=== PATIENT | female | born 1990 | race American Indian/Alaskan Native ===

== ENCOUNTER 2016-11-09 13:08 | Emergency (ER) | payer MEDICAID ==
--- NOTE | 2016-11-09 14:34 | ER Document Report ---
HPI - HPI Patient complains to provider of: bite on right hand Onset: Other - 2 days Onset/Duration: Sudden Quality of pain: Other - itching Severity: Mild Pain Level: 2 Context: Patient states she was bit by something on the right hand 2 days ago. It is very itchy but patient has not taken anything for it due to the fact that she is breast-feeding. Patient does admit to scratching it. No drainage. Associated Symptoms: None Exacerbated by: Denies Relieved by: Denies Similar symptoms previously: No Recently seen / treated by doctor: No - ROS ROS below otherwise negative: Yes Systems Reviewed and Negative: Yes All other systems reviewed and negative - CONSTITUTIONAL Constitutional: DENIES: Fever - EENT EENT: DENIES: Congestion - NEURO Neurology: DENIES: Headache - CARDIOVASCULAR Cardiovascular: DENIES: Chest pain - RESPIRATORY Respiratory: DENIES: Trouble Breathing - GASTROINTESTINAL Gastrointestinal: DENIES: Abdominal Pain - URINARY Urinary: DENIES: Dysuria - REPRODUCTIVE Reproductive: REPORTS: : - DERM Skin Color: Erythema Skin Problems: Blister Past Medical History - General Information source: Patient - Social History Smoking Status: Never Smoker Chew tobacco use (# tins/day): No Frequency of alcohol use: None Drug Abuse: None Lives with: Spouse/Significant other Family History: Hypertension Patient has suicidal ideation: No Patient has homicidal ideation: No Pulmonary Medical History: Reports: Hx Asthma Renal/ Medical History: Denies: Hx Peritoneal Dialysis Past Surgical History: Reports: Hx Tonsillectomy Vertical Provider Document - CONSTITUTIONAL Agree With Documented VS: Yes Exam Limitations: No Limitations General Appearance: WD/WN, No Apparent Distress - INFECTION CONTROL TRAVEL OUTSIDE OF THE [place] IN LAST 30 DAYS: No - HEENT HEENT: Atraumatic, Normocephalic - RESPIRATORY Respiratory: Breath Sounds Normal, No Respiratory Distress O2 Sat by Pulse Oximetry: 100 - CARDIOVASCULAR Cardiovascular: Regular Rate, Regular Rhythm - MUSCULOSKELETAL/EXTREMETIES Musculoskeletal/Extremeties: VITOR JARVIS - DERM Integumentary: Warm, Dry, Rash - Patient has 1 cm erythematous area to outer right, hand blisters noted. Nonfluctuant Course - Vital Signs Vital signs: Temp Pulse Resp BP Pulse Ox 98.5 F 108 H 16 145/79 H 100 11/09/16 13:32 11/09/16 13:32 11/09/16 13:32 11/09/16 13:32 11/09/16 13:32 Discharge - Discharge Clinical Impression: Insect bite of right hand with local reaction Qualifiers: Encounter type: initial encounter Qualified Code(s): S60.561A - Insect bite ( nonvenomous) of right hand, initial encounter; W57.XXXA - Bitten or stung by nonvenomous insect and other nonvenomous arthropods, initial encounter Condition: Good Disposition: ADMITTED INPATIENT Additional Instructions: Meds as prescribed. Ice packs on area for itching since she cannot take Benadryl Follow with your primary care doctor if not better in 1 week or return if worsens Prescriptions: Cephalexin [Cephalexin 500 MG Capsule] 1 cap PO QID #20 capsule Famotidine [Pepcid 20 mg Tablet] 20 mg PO DAILY #12 tablet Hydrocortisone/Oatmeal/Aloe/E [Hydrocortisone 1% Cream] 28.4 gm TP BID #15 gm Loratadine [Claritin 10 mg Tablet] 10 mg PO DAILY #7 tablet Forms: Return to Work
[2016-11-09 14:46] VITALS: BP 135/65
== END 2016-11-09 14:48 | disposition home or self-care (01) ==
LOC: ER 13:08
DX: O9A.219 Injury, poisoning and certain other consequences of external causes complicating pregnancy, unspecified trimester (principal); S60.561A Insect bite (nonvenomous) of right hand, initial encounter; W57.XXXA Bitten or stung by nonvenomous insect and other nonvenomous arthropods, initial encounter; O99.519 Diseases of the respiratory system complicating pregnancy, unspecified trimester; J45.909 Unspecified asthma, uncomplicated; Z3A.00 Weeks of gestation of pregnancy not specified
CPT/HCPCS: 99281

== ENCOUNTER 2016-12-23 02:20 | Emergency (ER) | payer MEDICAID ==
--- NOTE | 2016-12-23 02:53 | ER Document Report ---
ED General - General Chief Complaint: Chest Pain Stated Complaint: DIZZINESS Time Seen by Provider: 12/23/16 02:52 Notes: Patient is a 26-year-old female who presents with complaint complaint of some cough congestion. She says she has had a cough for approximately a week. She is also felt some pressure up into her face and sinuses. She said suddenly today she is felt short of breath and felt dizzy. The symptoms were a little bit different than the normal cough and congestion that she has been having earlier. No leg pain or leg swelling. No fevers. No vomiting. No diarrhea. No family history of heart disease that she is aware of. TRAVEL OUTSIDE OF THE [place] IN LAST 30 DAYS: No - Related Data Allergies/Adverse Reactions: No Known Allergies Allergy (Verified 12/23/16 02:37) Past Medical History - Social History Smoking Status: Never Smoker Chew tobacco use (# tins/day): No Frequency of alcohol use: None Drug Abuse: None Family History: Hypertension Patient has suicidal ideation: No Patient has homicidal ideation: No Pulmonary Medical History: Reports: Hx Asthma Renal/ Medical History: Denies: Hx Peritoneal Dialysis Past Surgical History: Reports: Hx Tonsillectomy - Immunizations Hx Diphtheria, Pertussis, Tetanus Vaccination: Yes Review of Systems - Review of Systems Notes: My Normal Review Basic REVIEW OF SYSTEMS: CONSTITUTIONAL : Denies fever, chills, or sweats. Denies recent illness. EENT: Congestion CARDIOVASCULAR: Denies chest pain. RESPIRATORY: Cough. shortness of breath GASTROINTESTINAL: Denies abdominal pain. Denies nausea, vomiting, or diarrhea. Denies constipation. Last BM: MUSCULOSKELETAL: Denies neck or back pain or joint pain or swelling. SKIN: Denies rash or skin lesions. HEMATOLOGIC : Denies easy bruising or bleeding. LYMPHATIC: Denies swollen, enlarged glands. NEUROLOGICAL: Denies altered mental status or loss of consciousness. Denies headache. Denies weakness or paralysis or loss of use of either side. Denies problems with gait or speech. Denies sensory or motor loss. ALL OTHER SYSTEMS REVIEWED AND NEGATIVE. Physical Exam - Vital signs Vitals: Temp Pulse Resp BP Pulse Ox 98 F 94 20 121/71 99 12/23/16 02:37 12/23/16 02:37 12/23/16 02:37 12/23/16 02:37 12/23/16 02:37 - Notes Notes: General Appearance: Well nourished, alert, cooperative, no acute distress, no obvious discomfort. Vitals: reviewed, See vital signs table. Head: no swelling or tenderness to the head Eyes: PERRL, EOMI, Conjuctiva clear Mouth: No decreasd moisture Lungs: No wheezing, No rales, No rhonci, No accessory muscle use, good air exchange bilaterally. Heart: Tachycardic rate, Regular rythm, No murmur, no rub Abdomen: Normal BS, soft, No rigidity, No abdominal tenderness, No guarding, no rebound, no abdominal masses, no organomegaly Extremities: strength 5/5 in all extremities, good pulses in all extremities, no swelling or tenderness in the extremities, no edema. Skin: warm, dry, appropriate color, no rash Neuro: speech clear, oriented x 3, normal affect, responds appropriately to questions. Course - Vital Signs Vital signs: Temp Pulse Resp BP Pulse Ox 98 F 82 18 125/70 98 12/23/16 02:37 12/23/16 03:34 12/23/16 03:34 12/23/16 03:34 12/23/16 03:34 - Laboratory Result Diagrams: 12/23/16 02:30 12/23/16 02:30 Laboratory results interpreted by me: 12/23/16 12/23/16 02:30 02:30 RDW 14.6 H Glucose 113 H - EKG Interpretation by Me Additional EKG results interpreted by me: 12/23/16 02:53 EKG shows sinus tachycardia with a rate of [address] segment elevation or depression. No ischemic T-wave inversions. GA interval, QRS duration, QTc intervals are within normal range. Old EKG for comparison is from January 30, 2015. - Transfer of Care Notes: 12/23/16 04:15 After evaluation is unremarkable. Her chest x-ray is clear. Prior history exam sounds more consistent with sinus pressure that is probably leading to some vertigo as well as the feeling that she cannot breathe through her nose and face. I did initially obtain a d-dimer she did have some resting tachycardia that was persistent. Since then she has rested in her tachycardia is gone away. Her heart rate is now in the 70s and 80s. Her d-dimer is negative. A low likelihood for PE. Patient will be discharged home. She is encouraged to return to ER if she has worsening of her symptoms or feels unwell. Patient agrees with plan and will be discharged home. Dictation of this chart was performed using voice recognition software; therefore, there may be some unintended grammatical errors. Discharge - Discharge Clinical Impression: Dizziness, Sinus pressure, Cough URI (upper respiratory infection) Qualifiers: URI type: unspecified URI Qualified Code(s): J06.9 - Acute upper respiratory infection, unspecified Condition: Good Disposition: HOME, SELF-CARE Additional Instructions: Please return to the ER immediately if you have difficulty breathing, fevers, or feel that your symptoms are worsening. Pleae follow up with your doctor in 2- 3 days for reevaluation. Prescriptions: Fluticasone Propionate [Flonase Nasal [place] 50 Mcg/[place] 16 gm] 1 spray NASL Q12 #1 inhaler Prednisone [Deltasone 20 mg Tablet] 3 tab PO DAILY 4 Days Forms: Return to Work
[2016-12-23 03:19] LABS: ABSOLUTE EOSINOPHILS # (AUTO) 0.1 10^3/uL (0.0-0.6); ABSOLUTE LYMPHOCYTES (AUTO) 2.9 10^3/uL (0.5-4.7); ABSOLUTE MONOCYTES (AUTO) 0.6 10^3/uL (0.1-1.4); ABSOLUTE NEUT (AUTO) 4.4 10^3/uL (1.7-8.2); BASOPHILS % (AUTO) 0.3 % (0-2); HEMOGLOBIN 12.4 g/dL (12.0-15.5); HGB HCT DIFFERENCE -0.8; LYMPHOCYTES % (AUTO) 36.3 % (13-45); MEAN CORPUSCULAR HEMOGLOBIN 28.7 pg (27.0-33.4); MEAN CORPUSCULAR HGB CONC 32.7 g/dL (32.0-36.0); MEAN CORPUSCULAR VOLUME 88 fl (80-97); MONOCYTES % (AUTO) 7.2 % (3-13); RED BLOOD COUNT 4.33 10^6/uL (3.72-5.28); RED CELL DISTRIBUTION WIDTH 14.6 % (11.5-14.0); SEGMENTED NEUTROPHILS % (AUTO) 55.2 % (42-78); WHITE BLOOD COUNT 8.1 10^3/uL (4.0-10.5)
[2016-12-23 03:41] LABS: ANION GAP 10 (5-19); BLOOD UREA NITROGEN 19 mg/dL (7-20); CALCIUM 9.6 mg/dL (8.4-10.2); CARBON DIOXIDE 23 mmol/L (22-30); CHLORIDE 107 mmol/L (98-107); CREATININE RESULT 0.76 mg/dL (0.52-1.25); GLUCOSE 113 mg/dL (75-110); POTASSIUM 3.9 mmol/L (3.6-5.0); SODIUM 140.2 mmol/L (137-145)
--- NOTE | 2016-12-23 04:03 | RADIOLOGY REPORT (SQ) ---
EXAM DESCRIPTION: CHEST SINGLE VIEW COMPLETED DATE/TIME: 12/23/2016 3:46 am REASON FOR STUDY: cough COMPARISON: None. EXAM PARAMETERS: NUMBER OF VIEWS: One view. TECHNIQUE: Single frontal radiographic view of the chest acquired. RADIATION DOSE: NA LIMITATIONS: None. FINDINGS: LUNGS AND PLEURA: No opacities, masses or pneumothorax. No pleural effusion. MEDIASTINUM AND HILAR STRUCTURES: No masses. Contour normal. HEART AND VASCULAR STRUCTURES: Heart normal in size. Normal vasculature. BONES: No acute findings. HARDWARE: None in the chest. OTHER: No other significant finding. IMPRESSION: NO ACUTE RADIOGRAPHIC FINDING IN THE CHEST. TECHNICAL DOCUMENTATION: JOB ID: [id number]
[2016-12-23 04:21] VITALS: BP 120/62
--- NOTE | 2016-12-24 09:45 | EKG REPORT ---
SEVERITY:- ABNORMAL ECG - SINUS TACHYCARDIA BORDERLINE T WAVE ABNORMALITIES : Confirmed by: Frandy Lepe 24-Dec-2016 09:44:34
== END 2016-12-23 04:20 | disposition home or self-care (01) ==
LOC: ER 02:20
DX: J06.9 Acute upper respiratory infection, unspecified (principal); R05 Cough; R09.81 Nasal congestion; R07.9 Chest pain, unspecified; R42 Dizziness and giddiness
CPT/HCPCS: 36415; 71010; 80048; 85025; 85379; 93005; 93010; 99284

== ENCOUNTER 2016-12-31 14:47 | Emergency (ER) | payer MEDICAID ==
[2016-12-31] MEDS ORDERED: ONDANSETRON 4 MG TAB.RAPDIS SL ONE (16:53)
--- NOTE | 2016-12-31 16:54 | ER Document Report ---
ED Medical Screen (RME) - General Chief Complaint: Dizziness Stated Complaint: NAUSEA Time Seen by Provider: 12/31/16 16:52 Mode of Arrival: Wheelchair Information source: Patient TRAVEL OUTSIDE OF THE [place] IN LAST 30 DAYS: No - HPI Patient complains to provider of: Lightheadedness, dizziness, nausea, shortness of breath Onset: Other - 3 Days Notes: 12/31/16 16:53 Patient is a 26-year-old female with a history of asthma who presents to the emergency room complaining of lightheadedness, dizziness, nausea, shortness of breath, patient works at [employer], a coworker of hers was seen in the emergency room this morning for similar symptoms as well - Related Data Allergies/Adverse Reactions: No Known Allergies Allergy (Verified 12/31/16 14:56) Past Medical History Pulmonary Medical History: Reports: Hx Asthma Renal/ Medical History: Denies: Hx Peritoneal Dialysis Past Surgical History: Reports: Hx Tonsillectomy - Immunizations Hx Diphtheria, Pertussis, Tetanus Vaccination: Yes Physical Exam - Vital signs Vitals: Temp Pulse Resp BP Pulse Ox 98.6 F 85 14 138/75 H 99 12/31/16 14:56 12/31/16 14:56 12/31/16 14:56 12/31/16 14:56 12/31/16 14:56 Course - Vital Signs Vital signs: Temp Pulse Resp BP Pulse Ox 98.6 F 85 14 138/75 H 99 12/31/16 14:56 12/31/16 14:56 12/31/16 14:56 12/31/16 14:56 12/31/16 14:56
[2016-12-31 17:52] LABS: ABSOLUTE LYMPHOCYTES (AUTO) 2.3 10^3/uL (0.5-4.7); ABSOLUTE MONOCYTES (AUTO) 0.6 10^3/uL (0.1-1.4); ABSOLUTE NEUT (AUTO) 8.3 10^3/uL (1.7-8.2); BASOPHILS % (AUTO) 0.3 % (0-2); EOSINOPHILS % (AUTO) 0.3 % (0-6); HEMATOCRIT 40.1 % (36.0-47.0); HEMOGLOBIN 13.1 g/dL (12.0-15.5); HGB HCT DIFFERENCE -0.8; LYMPHOCYTES % (AUTO) 20.1 % (13-45); MEAN CORPUSCULAR HEMOGLOBIN 28.4 pg (27.0-33.4); MEAN CORPUSCULAR HGB CONC 32.6 g/dL (32.0-36.0); MEAN CORPUSCULAR VOLUME 87 fl (80-97); MONOCYTES % (AUTO) 5.3 % (3-13); RED CELL DISTRIBUTION WIDTH 14.4 % (11.5-14.0); WHITE BLOOD COUNT 11.2 10^3/uL (4.0-10.5)
[2016-12-31 18:00] LABS: APPEARANCE,URINE SLIGHTLY-CLOUDY; BILIRUBIN,URINE NEGATIVE (NEGATIVE); GLUCOSE, URINE NEGATIVE (NEGATIVE); KETONES,URINE NEGATIVE (NEGATIVE); LEUKOCYTE ESTERASE,URINE NEGATIVE (NEGATIVE); NITRITE,URINE NEGATIVE (NEGATIVE); PROTEIN,URINE NEGATIVE (NEGATIVE); URINE SPECIFIC GRAVITY 1.024
[2016-12-31 18:13] LABS: ALANINE AMINOTRANSFERASE 36 U/L (9-52); ALBUMIN 4.6 g/dL (3.5-5.0); ALKALINE PHOSPHATASE 108 U/L (38-126); ANION GAP 14 (5-19); ASPARTATE AMINO TRANSFERASE 23 U/L (14-36); BILIRUBIN,DIRECT 0.3 mg/dL (0.0-0.4); BILIRUBIN,TOTAL 0.5 mg/dL (0.2-1.3); BLOOD UREA NITROGEN 12 mg/dL (7-20); CALCIUM 9.7 mg/dL (8.4-10.2); CARBON DIOXIDE 24 mmol/L (22-30); CHLORIDE 104 mmol/L (98-107); CREATININE RESULT 0.76 mg/dL (0.52-1.25); GLUCOSE 101 mg/dL (75-110); POTASSIUM 4.3 mmol/L (3.6-5.0); SODIUM 142.2 mmol/L (137-145); TOTAL PROTEIN 7.9 g/dL (6.3-8.2)
--- NOTE | 2016-12-31 19:26 | ER Document Report ---
ED General - General Chief Complaint: Dizziness Stated Complaint: NAUSEA Time Seen by Provider: 12/31/16 16:52 Mode of Arrival: Wheelchair Information source: Patient TRAVEL OUTSIDE OF THE [place] IN LAST 30 DAYS: No - HPI Patient complains to provider of: Weakness, nausea, shortness of breath Onset: Other - 2-3 days Onset/Duration: Gradual, Persistent Quality of pain: No pain Associated symptoms: Nausea Exacerbated by: Denies Relieved by: Denies Similar symptoms previously: No Recently seen / treated by doctor: No Notes: Patient is a 26-year-old female no past medical history except for asthma, who presents to the emergency room complaining of lightheadedness, dizziness, nausea and shortness of breath this been going on for the past 2-3 days, she denies any fevers, no injuries, no pain anywhere, she works at [employer] but 1 of her coworkers was seen here for similar symptoms today as well, patient denies any history of previous similar symptoms - Related Data Allergies/Adverse Reactions: No Known Allergies Allergy (Verified 12/31/16 14:56) Past Medical History - General Information source: Patient - Social History Smoking Status: Never Smoker Family History: Hypertension Patient has suicidal ideation: No Patient has homicidal ideation: No Pulmonary Medical History: Reports: Hx Asthma Renal/ Medical History: Denies: Hx Peritoneal Dialysis Past Surgical History: Reports: Hx Tonsillectomy - Immunizations Hx Diphtheria, Pertussis, Tetanus Vaccination: Yes Review of Systems - Review of Systems Constitutional: See HPI EENT: No symptoms reported Cardiovascular: See HPI Respiratory: See HPI Gastrointestinal: No symptoms reported Genitourinary: No symptoms reported Female Genitourinary: No symptoms reported Musculoskeletal: No symptoms reported Skin: No symptoms reported Hematologic/Lymphatic: No symptoms reported Neurological/Psychological: No symptoms reported -: Yes All other systems reviewed and negative Physical Exam - Vital signs Vitals: Temp Pulse Resp BP Pulse Ox 98.6 F 85 14 138/75 H 99 12/31/16 14:56 12/31/16 14:56 12/31/16 14:56 12/31/16 14:56 12/31/16 14:56 Interpretation: Normal - General General appearance: Appears well, Alert - HEENT Head: Normocephalic, Atraumatic Eyes: Normal Pupils: PERRL - Respiratory Respiratory status: No respiratory distress Chest status: Nontender Breath sounds: Normal Chest palpation: Normal - Cardiovascular Rhythm: Regular Heart sounds: Normal auscultation Murmur: No - Abdominal Inspection: Normal Distension: No distension Bowel sounds: Normal Tenderness: Nontender Organomegaly: No organomegaly - Back Back: Normal, Nontender - Extremities General upper extremity: Normal inspection, Nontender, Normal color, Normal ROM , Normal temperature General lower extremity: Normal inspection, Nontender, Normal color, Normal ROM , Normal temperature, Normal weight bearing. No: Anna's sign - Neurological Neuro grossly intact: Yes Cognition: Normal Orientation: AAOx4 [place] Scale Eye Opening: Spontaneous Don Com[place] Scale Verbal: Oriented Don Coma Scale Motor: Obeys Commands Don Coma Scale Total: 15 Speech: Normal Motor strength normal: LUE, RUE, LLE, RLE Sensory: Normal - Psychological Associated symptoms: Normal affect, Normal mood - Skin Skin Temperature: Warm Skin Moisture: Dry Skin Color: Normal Course - Re-evaluation Re-evalutation: 12/31/16 19:25 Auditory findings are unremarkable, physical exam findings also unremarkable, patient will be discharged with instructions for follow-up and advised to return if any additional concerns, patient acknowledges understanding and agreement with this plan - Vital Signs Vital signs: Temp Pulse Resp BP Pulse Ox 98.6 F 85 14 138/75 H 99 12/31/16 14:56 12/31/16 14:56 12/31/16 14:56 12/31/16 14:56 12/31/16 14:56 - Laboratory Result Diagrams: 12/31/16 17:25 12/31/16 17:25 Laboratory results interpreted by me: 12/31/16 12/31/16 17:25 17:25 WBC 11.2 H RDW 14.4 H Absolute Neutrophils 8.3 H Urine Urobilinogen 2.0 H Discharge - Discharge Clinical Impression: Lightheadedness Condition: Stable Disposition: HOME, SELF-CARE Instructions: Dizziness ([facility]), Vertigo ([facility]), Meclizine ([facility]) Additional Instructions: Follow up with your primary care provider in one to 2 days. Return to the emergency room immediately if symptoms worsen or any additional concerns. Forms: Return to Work
[2016-12-31 19:55] VITALS: BP 136/73
== END 2016-12-31 19:53 | disposition home or self-care (01) ==
LOC: ER 14:47
DX: R42 Dizziness and giddiness (principal); R11.0 Nausea; R06.02 Shortness of breath
CPT/HCPCS: 36415; 80053; 81001; 82375; 84703; 85025; 87086; 99284

== ENCOUNTER 2017-01-19 14:05 | Emergency (ER) | payer MEDICAID ==
[2017-01-19 14:18] VITALS: BP 141/76
[2017-01-19] MEDS ORDERED: MECLIZINE HCL 25 MG TABLET PO ONE (14:31)
[2017-01-19] MEDS ORDERED: IPRATROPIUM/ALBUTEROL 0.5-2.5 MG/3 ML AMPUL NEB ONE (14:32)
--- NOTE | 2017-01-19 16:07 | ER Document Report ---
ED Medical Screen (RME) - General Chief Complaint: Shortness Of Breath Stated Complaint: SHORTNESS OF BREATH Time Seen by Provider: 01/19/17 14:30 Mode of Arrival: Medic Information source: Patient Notes: This is a 26-year-old female with a history of asthma that is brought into the emergency room because of shortness of breath, dizziness, nausea with one episode of vomiting. Patient was given Zofran by EMS and transported to the ER. TRAVEL OUTSIDE OF THE [place] IN LAST 30 DAYS: No - HPI Onset: Just prior to arrival Onset/Duration: Gradual Quality of pain: No pain Severity: None Pain Level: Denies Associated Symptoms: Shortness of breath Exacerbated by: Denies Relieved by: Denies Similar symptoms previously: Yes Recently seen / treated by doctor: Yes - Related Data Smoking: Non-smoker Frequency of alcohol use: None Drug Abuse: None Allergies/Adverse Reactions: No Known Allergies Allergy (Verified 12/31/16 14:56) Past Medical History - General Information source: Patient - Social History Chew tobacco use (# tins/day): No Frequency of alcohol use: None Drug Abuse: None Lives with: Family Family history: None - Past Medical History Cardiac Medical History: Reports: None Pulmonary Medical History: Reports: Hx Asthma Renal/ Medical History: Denies: Hx Peritoneal Dialysis Past Surgical History: Reports: Hx Tonsillectomy - Immunizations Hx Diphtheria, Pertussis, Tetanus Vaccination: Yes Review of Systems - Review of Systems Constitutional: denies: Chills, Fever EENT: No symptoms reported Cardiovascular: No symptoms reported Respiratory: See HPI Gastrointestinal: No symptoms reported Genitourinary: No symptoms reported Female Genitourinary: No symptoms reported Musculoskeletal: No symptoms reported Skin: No symptoms reported Hematologic/Lymphatic: No symptoms reported Neurological/Psychological: See HPI Physical Exam - Vital signs Vitals: Temp Pulse Resp BP Pulse Ox 97.8 F 79 16 141/76 H 98 01/19/17 14:11 01/19/17 14:11 01/19/17 14:11 01/19/17 14:11 01/19/17 14:11 Notes: Physical exam: GENERAL: 26-year-old female, alert and oriented 3, no acute distress HEAD: Atraumatic, normocephalic. EYES: Pupils equal round and reactive to light, extraocular movements intact, sclera anicteric, conjunctiva are normal. ENT: TMs normal, nares patent, oropharynx clear without exudates. Moist mucous membranes. NECK: Normal range of motion, supple without lymphadenopathy or JVD. LUNGS: Bilateral wheezing HEART: Regular rate and rhythm without murmurs, rubs or gallops. ABDOMEN: Soft, normoactive bowel sounds. No tenderness to palpation. No guarding, no rebound. No masses appreciated. EXTREMITIES: Normal range of motion, no pitting or edema. No clubbing or cyanosis. NEUROLOGICAL: Cranial nerves II through XII grossly intact. Normal speech, normal gait. PSYCH: Normal mood, normal affect. SKIN: Warm, Dry, normal turgor, no rashes or lesions noted. Course - Vital Signs Vital signs: Temp Pulse Resp BP Pulse Ox 97.8 F 79 16 141/76 H 98 01/19/17 14:11 01/19/17 14:11 01/19/17 14:11 01/19/17 14:11 01/19/17 14:11 Doctor's Discharge - Discharge Clinical Impression: asthma Exacerbation, Vertigo Condition: Stable Disposition: HOME, SELF-CARE Instructions: Vertigo ([facility]), Asthma ([facility]) Additional Instructions: Please note: Many disease processes do evolve over time and the ER visit offers only a brief assessment. This is why it is important that you: 1. Follow up with her doctor for ongoing symptoms within the next week. 2. Return to the ER at once if your symptoms worsen, are not improving or if you are unable to get into your physician's office. When you call your physician's office, tell them that you were evaluated in the ER and the ER physician recommended that you are reevaluated in the office in the time span mentioned above. If given a copy of any lab tests or radiology reports, bring them with you when you see your physician. The meclizine for dizziness The cough medicine for loosening up the cough. Continue the inhaler as needed. Discussed, your test today was negative. [facility] Prescriptions: Guaifenesin [Mucinex] 600 mg PO BID #14 tab.er.12h Meclizine HCl [Antivert 12.5 mg Tablet] 12.5 mg PO BID PRN #14 tab PRN Reason: Referrals: [facility] [Provider Group] - Follow up as needed (Number for the primary care clinic)
== END 2017-01-19 16:35 | disposition home or self-care (01) ==
LOC: ER 14:05
DX: J45.901 Unspecified asthma with (acute) exacerbation (principal); R06.02 Shortness of breath; R42 Dizziness and giddiness; R11.2 Nausea with vomiting, unspecified
CPT/HCPCS: 94640; 99285; 81025; J7620

== ENCOUNTER 2018-01-12 18:04 | Emergency (ER) | payer MEDICAID ==
--- NOTE | 2018-01-12 18:41 | ER Document Report ---
ED General - General Mode of Arrival: Ambulatory Information source: Patient TRAVEL OUTSIDE OF THE [place] IN LAST 30 DAYS: No <FLORA BLUE - Last Filed: 01/12/18 21:15> <SKYLER ROMO - Last Filed: 01/15/18 19:26> - General Chief Complaint: Fall Injury Stated Complaint: FALL/HEAD LACERATION,LEFT ANKLE PAIN Time Seen by Provider: 01/12/18 18:32 Notes: 27-year-old female presenting today with complaints of a fall that occurred prior to arrival. Patient states she is moving and she slipped and fell hitting her head on the corner of the moving truck. Patient has a puncture wound to the back of her head and left ankle pain. Patient states she twisted the ankle during the fall. (FLORA BLUE) - Related Data Allergies/Adverse Reactions: No Known Allergies Allergy (Verified 12/31/16 14:56) Past Medical History - General Information source: Patient - Social History Smoking Status: Never Smoker Cigarette use (# per day): No Frequency of alcohol use: None Drug Abuse: None Lives with: Family Family History: Reviewed & Not Pertinent, Hypertension Pulmonary Medical History: Reports: Hx Asthma Past Surgical History: Reports: Hx Tonsillectomy - Immunizations Hx Diphtheria, Pertussis, Tetanus Vaccination: Yes <FLORA BLUE - Last Filed: 01/12/18 21:15> - General Information source: Patient - Social History Family History: Reviewed & Not Pertinent <SKYLER ROMO - Last Filed: 01/15/18 19:26> Review of Systems - Review of Systems Constitutional: No symptoms reported EENT: No symptoms reported Cardiovascular: No symptoms reported Respiratory: No symptoms reported Gastrointestinal: No symptoms reported Genitourinary: No symptoms reported Female Genitourinary: No symptoms reported Musculoskeletal: See HPI, Joint pain - left ankle pain Skin: See HPI, Other - head wound Hematologic/Lymphatic: No symptoms reported Neurological/Psychological: No symptoms reported -: Yes All other systems reviewed and negative <FLORA BLUE - Last Filed: 01/12/18 21:15> - Vital signs Vitals: Temp Pulse Resp BP Pulse Ox 98.1 F 108 H 20 130/97 H 98 01/12/18 18:15 01/12/18 18:15 01/12/18 18:15 01/12/18 18:15 01/12/18 18:15 - Notes Notes: Physical Exam: General: Alert, appears well. HEENT: Normocephalic. 5cm x 5cm hematoma to posterior scalp with small centralized puncture wound. PERRL. Extraocular movements intact. Oropharynx clear. Neck: Supple. Non-tender. Respiratory: No respiratory distress. Clear and equal breath sounds bilaterally. Cardiovascular: Regular rate and rhythm. Abdominal: Normal Inspection. Non-tender. No distension. Normal Bowel Sounds. Back: Non-tender. No deformity or step off. Extremities: Moves all four extremities. Upper extremities: Normal inspection. Normal ROM. Lower extremities: Swelling and tenderness over left lateral malleolus. Neurological: Normal cognition. AAOx4. Normal speech. Psychological: Normal affect. Normal Mood. Skin: Warm. Dry. Normal color. (FLORA BLUE) Course <FLORA BLUE - Last Filed: 01/12/18 21:15> <SKYLER ROMO - Last Filed: 01/15/18 19:26> - Re-evaluation Re-evalutation: 01/12/18 19:32 2 kaden were placed in the scalp tetanus shot was provided as patient unsure of last tetanus shot. Soft tissue swelling consistent with ankle sprain but no evidence of fracture. Will provide Eros bandage and provided ankle sprain guidelines. Patient is to follow-up in the next 14 days if symptoms are not improving reevaluation as discussed with her hairline fractures are not detectable on initial radiographs. (SKYLER ROMO) - Vital Signs Vital signs: Temp Pulse Resp BP Pulse Ox 98.5 F 76 20 118/62 100 01/12/18 19:52 01/12/18 19:52 01/12/18 19:52 01/12/18 19:52 01/12/18 19:52 Procedures - Laceration/Wound Repair Head Wound's Depth, Shape: Other - puncture, (pt hit edge of truck) Laceration pre-procedure: Betadine prep applied Wound explored: Clean, No foreign body removed Wound Repaired With: Kaden - 2 <SKYLER ROMO - Last Filed: 01/15/18 19:26> Discharge <FLORA BLUE - Last Filed: 01/12/18 21:15> <SKYLER ROMO - Last Filed: 01/15/18 19:26> - Discharge Clinical Impression: Scalp laceration Qualifiers: Encounter type: initial encounter Qualified Code(s): S01.01XA - Laceration without foreign body of scalp, initial encounter Ankle sprain Qualifiers: Encounter type: initial encounter Involved ligament of ankle: other ligament Laterality: left Qualified Code(s): S93.492A - Sprain of other ligament of left ankle, initial encounter Condition: Good Disposition: HOME, SELF-CARE Instructions: Scalp Hematoma ([facility]), Sprained Ankle ([facility]), Care of Stapled Wounds ([facility]), Tetanus Immunization Given ([facility]) Additional Instructions: Follow-up in 1 week for staple removal from scalp Prescriptions: Naproxen 500 mg PO BID PRN #30 tablet PRN Reason: Forms: Return to Work Referrals: SURESH SANCHEZ MD [ACTIVE STAFF] - Follow up as needed (In 10-14 days if symptoms are not improving) Scribe Attestation: 01/15/18 19:05 I personally performed the services described documentation, reviewed and edited the documentation which was dictated to describe my presence, and it accurately records my words and actions. (SKYLER ROMO) Scribe Documentation - Scribe Written by Scribe:: Alize Monet, 01/12/2018 [id number] acting as scribe for :: Herbert <FLORA BLUE - Last Filed: 01/12/18 21:15>
[2018-01-12] MEDS ORDERED: DIPH/PERTUSS(ACELL)/TETANUS VAC/PF 0.5 ML SYR (>=10YO) IM ONE (19:16)
[2018-01-12] MEDS ORDERED: KETOROLAC TROMETHAMINE 60 MG/2 ML SDV IM ONE (19:17)
--- NOTE | 2018-01-12 19:26 | RADIOLOGY REPORT (SQ) ---
EXAM DESCRIPTION: ANKLE LEFT COMPLETE COMPLETED DATE/TIME: 01/12/2018 7:19 pm REASON FOR STUDY: Pain after fall, twisted ankle COMPARISON: None. NUMBER OF VIEWS: Three views. TECHNIQUE: AP, lateral, and oblique radiographic images acquired of the left ankle. LIMITATIONS: None. FINDINGS: MINERALIZATION: Normal. BONES: No acute fracture or dislocation. No worrisome bone lesions. JOINTS: No effusions. SOFT TISSUES: Soft tissue swelling. OTHER: No other significant finding. IMPRESSION: Soft tissue swelling. No acute fracture. TECHNICAL DOCUMENTATION: JOB ID: [id number] [employer]- All Rights Reserved Reading location - IP/workstation name: [email or web address]
[2018-01-12 20:01] VITALS: BP 118/62
== END 2018-01-12 20:01 | disposition home or self-care (01) ==
LOC: ER 18:04
PROC: 0HQ0XZZ Repair Scalp Skin, External Approach (ICD-10-PCS; principal; 2018-01-12)
DX: S01.01XA Laceration without foreign body of scalp, initial encounter (principal); S93.492A Sprain of other ligament of left ankle, initial encounter; M25.572 Pain in left ankle and joints of left foot; W01.198A Fall on same level from slipping, tripping and stumbling with subsequent striking against other object, initial encounter; J45.909 Unspecified asthma, uncomplicated
CPT/HCPCS: 99283; 73610; 90715; 12001; J1885

== ENCOUNTER 2018-01-19 18:28 | Emergency (ER) | payer MEDICAID ==
--- NOTE | 2018-01-19 19:15 | ER Document Report ---
ED Suture/Wound Recheck - General Chief Complaint: Staple Removal Stated Complaint: ANKLE PAIN Time Seen by Provider: 01/19/18 19:04 Mode of Arrival: Ambulatory Information source: Patient Notes: 27-year-old female presented to ED for removal of kaden from her scalp. She states the kaden were placed about a week ago. She states she still has some headaches due to her fall a week ago. Is alert and oriented respirations regular and unlabored's speaking in full sentences with a even steady gait. She does have a splint to her left ankle where she fell last week. TRAVEL OUTSIDE OF THE [place] IN LAST 30 DAYS: No - HPI Previous ED treatment: Laceration repair Quality of pain: Achy Severity: Moderate Pain Level: 3 Symptoms since procedure: Pain. denies: Fever, Red streaks, Redness, Swelling Exacerbated by: Walking - Ambulation is making her left ankle painful and if she touches her head it hurts Relieved by: Denies - Related Data Allergies/Adverse Reactions: No Known Allergies Allergy (Verified 01/19/18 18:39) Past Medical History - General Information source: Patient - Social History Smoking Status: Never Smoker Cigarette use (# per day): No Chew tobacco use (# tins/day): No Smoking Education Provided: No Frequency of alcohol use: None Drug Abuse: None Lives with: Family Family History: Reviewed & Not Pertinent Patient has suicidal ideation: No Patient has homicidal ideation: No - Past Medical History Cardiac Medical History: Reports: None Pulmonary Medical History: Reports: Hx Asthma EENT Medical History: Reports: None Neurological Medical History: Reports: None Endocrine Medical History: Reports: None Renal/ Medical History: Reports: None Malignancy Medical History: Reports: None GI Medical History: Reports: None Musculoskeltal Medical History: Reports None Skin Medical History: Reports None Psychiatric Medical History: Reports: None Traumatic Medical History: Reports: None Infectious Medical History: Reports: None Past Surgical History: Reports: Hx Tonsillectomy - Immunizations Immunizations up to date: Yes Hx Diphtheria, Pertussis, Tetanus Vaccination: Yes Review of Systems - Review of Systems Constitutional: No symptoms reported EENT: No symptoms reported Cardiovascular: No symptoms reported Respiratory: No symptoms reported Gastrointestinal: No symptoms reported Genitourinary: No symptoms reported Female Genitourinary: No symptoms reported Musculoskeletal: Other - In the left ankle where she injured her ankle last week Skin: No symptoms reported Hematologic/Lymphatic: No symptoms reported Neurological/Psychological: Headaches - Tenderness to the scalp -: Yes All other systems reviewed and negative Physical Exam - Vital signs Vitals: Temp Pulse Resp BP Pulse Ox 98.6 F 68 17 149/90 H 100 01/19/18 18:43 01/19/18 18:43 01/19/18 18:43 01/19/18 18:43 01/19/18 18:43 Interpretation: Normal - General General appearance: Appears well, Alert - HEENT Head: Tenderness - Posterior right scalp kaden, Other - 2 kaden in posterior right scalp removed no redness drainage or any signs or symptoms of inflammation or infection noted. Eyes: Normal Pupils: PERRL Ears: Normal External canal: Normal Tympanic membrane: Normal Sinus: Normal Nasal: Normal Mouth/Lips: Normal Mucous membranes: Normal Pharynx: Normal Neck: Normal - Respiratory Respiratory status: No respiratory distress Chest status: Nontender Breath sounds: Normal Chest palpation: Normal - Cardiovascular Rhythm: Regular Heart sounds: Normal auscultation Murmur: No - Abdominal Inspection: Normal Distension: No distension Bowel sounds: Normal Tenderness: Nontender Organomegaly: No organomegaly - Back Back: Normal, Nontender - Extremities General upper extremity: Normal inspection, Nontender, Normal color, Normal ROM , Normal temperature General lower extremity: Nontender, Normal color, Normal ROM, Normal temperature , Normal weight bearing. No: Anna's sign Ankle: Other - Splint to left ankle from fall last week - Neurological Neuro grossly intact: Yes Cognition: Normal Orientation: AAOx4 Don Coma Scale Eye Opening: Spontaneous [place] Coma Scale Verbal: Oriented [place] Coma Scale Motor: Obeys Commands [place] Coma Scale Total: 15 Speech: Normal Motor strength normal: LUE, RUE, LLE, RLE Sensory: Normal - Psychological Associated symptoms: Normal affect, Normal mood - Skin Skin Temperature: Warm Skin Moisture: Dry Skin Color: Normal Course - Re-evaluation Re-evalutation: 01/19/18 23:11 Kaden removed from his scalp with no difficulty. Patient was instructed to please follow-up with orthopedics as she was instructed when she was here on 01/12. Patient states she did not remember what the name of the orthopedic was. She was given an name and number of Dr. Solis to call for follow-up for her ankle. - Vital Signs Vital signs: Temp Pulse Resp BP Pulse Ox 98.6 F 68 17 123/81 100 01/19/18 18:43 01/19/18 18:43 01/19/18 18:43 01/19/18 19:29 01/19/18 18:43 Discharge - Discharge Clinical Impression: Encounter for staple removal Ankle sprain Qualifiers: Encounter type: subsequent encounter Involved ligament of ankle: unspecified ligament Laterality: left Qualified Code(s): S93.402D - Sprain of unspecified ligament of left ankle, subsequent encounter Condition: Stable Disposition: HOME, SELF-CARE Instructions: Staple Removal ([facility]) Additional Instructions: SPRAINED ANKLE: Your sprained ankle results from stretching or tearing of the ligaments which support the ankle. This usually results from twisting the foot inward and under. The ligaments will require time and protection in order to heal properly. Many ankle sprains are quite disabling, and should be taken seriously. The usual treatment for an ankle sprain is cold packs; protection with tape , splints, or wraps; elevation; and staying off the ankle for at least a day. As the ankle improves, you can walk IF it's not painful to bear weight. Sports are best postponed until healing is complete. More serious sprains usually require strengthening exercises after early healing. Your physician has assessed the seriousness of the ligament injury to your ankle. However, the treatment may change, depending on how your ankle progresses. If further exams were recommended, it is important that you follow through. Call the doctor if your foot becomes numb, painful, or severely swollen. ICE & ELEVATION: Apply ice packs frequently against the painful area. Many different schedules are recommended, such as "20 minutes on, 20 minutes off" or "one hour ice, two hours rest." If you need to work, you may need to go longer between ice treatments. You should plan to have the area ice packed AT LEAST one- fourth of the time. The ice should be applied over the wrap, tape, or splint, or over a layer of cloth -- not directly against the skin. Some ice bags have a built-in cloth and can be put directly on the skin. Your injured part should be elevated as much as possible over the next 48 hours. Try to keep the injury above the level of the heart. Avoid use of the injured area. Elevation and rest will decrease the swelling. USE OF [id number] IBUPROFEN: Ibuprofen (Advil, Nuprin, Medipren, Motrin IB) is a medication for fever and pain control. In addition, it has anti- inflammatory effects which may be beneficial, especially in the treatment of injuries. It's best to take ibuprofen with food. Persons with ulcer disease or allergy to aspirin should notify their physician of this before taking ibuprofen. Ibuprofen can be given every four to six hours, for a total of four doses daily. Age Pain or fever dose Antiinflammatory dose 6-8 yr 200 mg (1 tab) 200 mg (1 tab) 9-11 yr 200 mg (1 tab) 200-400 mg (1-2 tab) 11-14 yr 200-400 mg (1-2 tab) 400 mg (2 tab) 15-adult 400 mg (2 tab) 600 mg (3 tab) FOLLOW-UP CARE: If you have been referred to a physician for follow-up care, call the physician s office for an appointment as you were instructed or within the next two days. If you experience worsening or a significant change in your symptoms, notify the physician immediately or return to the Emergency Department at any time for re-evaluation. Forms: Elevated Blood Pressure Referrals: HÉCTOR SOLIS MD [ACTIVE STAFF] - Follow up as needed
[2018-01-19 19:30] VITALS: BP 123/81
== END 2018-01-19 19:29 | disposition home or self-care (01) ==
LOC: ER 18:28
DX: S01.01XD Laceration without foreign body of scalp, subsequent encounter (principal); S93.402D Sprain of unspecified ligament of left ankle, subsequent encounter; W19.XXXD Unspecified fall, subsequent encounter